=== PATIENT | female | born 1940 ===

== ENCOUNTER 2023-11-05 05:26 | Day surgery (SDC) | payer OTHER ==
[~2023-11-05 05:26] MED LIST: AVAPRO150 MG; CHLORTHALIDONE 25MG; HUMALOG MI100 UNIT/2; LIPITOR40 M1; PLAVIX75 MG; SYNTHROID75 MCG; TOPROL XL25 M1; VITAMIN D
[2023-11-05] MEDS ORDERED: CEFAZOLIN SODIUM 1,000 MG VIAL ONE (10:01)
[2023-11-05] MEDS ORDERED: ONDANSETRON HCL 2 MG/ML VIAL ONE (22:45)
== END 2023-11-06 02:00 | disposition home or self-care (01) ==
LOC: CIR.AMB 05:26
PROVIDERS: ATTEND Surgery
DX: D05.12 Intraductal carcinoma in situ of left breast (principal); R59.0 Localized enlarged lymph nodes; Z20.822 Contact with and (suspected) exposure to COVID-19